=== PATIENT | male | born 2000 | race Caucasian/White ===

== ENCOUNTER 2024-09-30 22:30 | Emergency (ER) | payer BC ==
[2024-09-30 22:56] LABS: BASOPHILS ABSOLUTE AUTO 0.02 K/uL (0.00-0.20); BASOPHILS PERCENT AUTO 0.3 % (0.0-2.0); EOSINOPHILS ABSOLUTE AUTO 0.10 K/uL (0.00-0.50); EOSINOPHILS PERCENT AUTO 1.3 % (0.0-5.0); IMMATURE GRAN ABSOLUTE AUTO 0.01 10^3/uL (0.00-0.04); IMMATURE GRAN PERCENT AUTO 0.1 % (0.0-0.4); LYMPHOCYTES ABSOLUTE AUTO 4.50 K/uL (0.50-3.50); LYMPHOCYTES PERCENT AUTO 60.4 % (10.0-50.0); MONOCYTES ABSOLUTE AUTO 0.44 K/uL (0.00-1.00); MONOCYTES PERCENT AUTO 5.9 % (2.0-14.0); NEUTROPHILS ABSOLUTE AUTO 2.38 K/uL (1.40-7.00); NEUTROPHILS PERCENT AUTO 32.0 % (45.0-80.0); PLATELET COUNT,PLT 222 K/uL (150-350); RED BLOOD CELL COUNT 5.00 M/uL (4.33-5.41); RED CELL DISTRIBUTION WIDTH 12.8 % (11.2-14.1); WHITE BLOOD CELL COUNT,WBC 7.5 K/uL (4.0-10.2)
[2024-09-30 23:16] LABS: ALANINE AMINOTRANSFERASE,ALT 85 U/L (12-78); ASPARTATE AMNIOTRANSFERASE,AST 35 U/L (15-37); BILIRUBIN TOTAL 0.7 mg/dL (0.2-1.0); BLOOD UREA NITROGEN,BUN 15 mg/dL (7-18); CARBON DIOXIDE,CO2 23.8 mmol/L (21.0-32.0); CHLORIDE,CL 106 mmol/L (98-107); CREATININE 1.20 mg/dL (0.51-1.17); GLUCOSE RANDOM 107 mg/dL (70-99); POTASSIUM,K 3.4 mmol/L (3.5-5.1); PROTEIN TOTAL,TP 7.1 g/dL (6.4-8.2); SODIUM,NA 141 mmol/L (136-145)
[2024-09-30 23:17] LABS: ESTIMATED GFR 87 mL/min (>=60)
[2024-09-30] MEDS: Sodium Chloride 0.9% 10 ML Syringe FLUSH PRN (23:19)
[2024-09-30] MEDS: Diphtheria,Pertussis(Acell),Tetanus Vaccine 0.5 ML Syringe IM ONE (23:32)
== END 2024-09-30 23:50 ==
LOC: LL.ED 22:30
DX: S11.94XA Puncture wound with foreign body of unspecified part of neck, initial encounter (principal); Z88.5 Allergy status to narcotic agent; Z79.899 Other long term (current) drug therapy; Z23 Encounter for immunization; W22.8XXA Striking against or struck by other objects, initial encounter; Y93.89 Activity, other specified
CPT/HCPCS: 36415; 71045; 72040; 80053; 85025; 90471; 90715; 96374; 99285; J0696